=== PATIENT | female | born 1940 | race Caucasian/White ===

== ENCOUNTER → 2018-06-15 | Outpatient (CLI) | payer OTHER ==
[~2018-06-15] MED LIST: ASPI81CH PO; ATOR10 PO; ATOR20 PO; CALCA500CH PO; ENTRESTO 24 MG1 EACH PO; FAMO10 PO; LEVSOD50 PO; METO100ER PO; Micro-K10 MEQ PO; NITR.4SL PO; TICA90TA PO; TRIHYD253B PO; [UNRECOGNIZED DRUG - OTHER] PO
== END | disposition home or self-care (01) ==
LOC: PLD 14:43 → LAB SHORT 14:43
DX: L82.1 Other seborrheic keratosis (principal)
CPT/HCPCS: 88305

== ENCOUNTER → 2020-12-17 | Outpatient (CLI) | payer OTHER | END | disposition home or self-care (01) | LOC: LAB SHORT 10:35 → LAB 10:35 | DX: B35.1 Tinea unguium (principal) | CPT/HCPCS: 88305; 88312 ==

== ENCOUNTER → 2022-05-20 | Outpatient (CLI) | payer OTHER ==
[2022-05-20 17:36] LABS: Magnesium, Blood 2.2 mg/dL (1.6-2.4)
[2022-05-20 17:47] LABS: Albumin, Blood 3.8 g/dL (3.4-5.0); Albumin/Globulin Ratio 1.4 (0.8-1.8); Bilirubin, Total 0.8 mg/dL (0.1-1.0); Bun/Creatinine Ratio 14.3 (12.0-20.0); Calcium, Blood 8.8 mg/dL (8.5-10.1); Creatinine, Blood 1.12 mg/dL (0.40-1.00); Globulin, Blood 2.8 g/dL (2.2-4.0); Potassium, Blood 3.7 mmol/L (3.5-5.5); Thyroid Stimulating Hormone 2.77 uIU/mL (0.360-4.800); Total Protein, Blood 6.6 g/dL (6.4-8.2)
== END | disposition home or self-care (01) ==
LOC: LAB SHORT 13:51 → LAB 13:51
PROVIDERS: Internal Medicine Cardiovascular Disease
DX: I42.0 Dilated cardiomyopathy (principal); I10 Essential (primary) hypertension; R00.2 Palpitations
CPT/HCPCS: 36415; 80053; 83735; 83880; 84443

== ENCOUNTER 2022-07-16 06:45 | Emergency (ER) | payer OTHER ==
[~2022-07-16] VITALS: Ht 170.2 cm; Wt 83.9 kg
[2022-07-16 07:24] LABS: BASOPHILS ABSOLUTE AUTO 0.06 K/mm3 (0.00-0.23); BASOPHILS PERCENT AUTO 1 % (0-2); EOSINOPHILS ABSOLUTE AUTO 0.09 K/mm3 (0.00-0.68); EOSINOPHILS PERCENT AUTO 1 % (0-6); Hematocrit 46.2 % (33.0-51.0); Hemoglobin 15.7 g/dL (11.5-16.0); IMMATURE GRAN ABSOLUTE AUTO 0.01 K/mm3 (0.00-0.10); IMMATURE GRAN PERCENT AUTO 0 % (0-1); LYMPHOCYTES ABSOLUTE AUTO 2.26 K/mm3 (0.84-5.20); LYMPHOCYTES PERCENT AUTO 33 % (21-46); MONOCYTES ABSOLUTE AUTO 0.96 K/mm3 (0.16-1.47); MONOCYTES PERCENT AUTO 14 % (4-13); Mean Corpuscular HGB 29.6 pg (26.0-34.0); Mean Corpuscular Volume 87 fL (80-100); Mean Platelet Volume 11.9 fL (9.1-12.4); NEUTROPHILS ABSOLUTE AUTO 3.38 K/mm3 (1.96-9.15); NEUTROPHILS PERCENT AUTO 50 % (41-73); Platelet Count 179 K/mm3 (150-400); RDW Coefficient Variation 12.8 % (11.7-14.2); RDW Standard Deviation 40.8 fL (35.1-46.3); Red Blood Cell Count 5.31 M/mm3 (3.80-5.20); White Blood Cell Count 6.76 K/mm3 (4.00-11.30)
[2022-07-16 07:44] LABS: Albumin/Globulin Ratio 1.2 (0.8-1.8); Bilirubin, Total 0.9 mg/dL (0.1-1.0); Calcium, Blood 9.3 mg/dL (8.5-10.1); Creatinine, Blood 1.11 mg/dL (0.40-1.00); Globulin, Blood 3.2 g/dL (2.2-4.0); Total Protein, Blood 7.2 g/dL (6.4-8.2)
[2022-07-16] MEDS ORDERED: PRED20 PO (08:08)
[2022-07-16] MEDS ORDERED: ALBU90OI INH (08:08)
== END 2022-07-16 08:30 | disposition home or self-care (01) ==
LOC: ER 06:45
PROVIDERS: Emergency Medicine
DX: J06.9 Acute upper respiratory infection, unspecified (principal); M54.9 Dorsalgia, unspecified; R53.83 Other fatigue; I10 Essential (primary) hypertension; I25.10 Atherosclerotic heart disease of native coronary artery without angina pectoris; E03.9 Hypothyroidism, unspecified; Z88.1 Allergy status to other antibiotic agents; Z88.8 Allergy status to other drugs, medicaments and biological substances; Z88.2 Allergy status to sulfonamides; Z79.899 Other long term (current) drug therapy; Z79.82 Long term (current) use of aspirin
CPT/HCPCS: 71045; 80053; 84484; 85025; 93005; 93010

== ENCOUNTER 2023-01-04 21:43 | Emergency (ER) | payer OTHER ==
[~2023-01-04] VITALS: Ht 170.2 cm; Wt 86.2 kg
[~2023-01-04 21:43] MED LIST changes: +ALBU90OI INH; +PRED20 PO
[2023-01-04 22:26] LABS: BASOPHILS ABSOLUTE AUTO 0.06 K/mm3 (0.00-0.23); BASOPHILS PERCENT AUTO 1 % (0-2); EOSINOPHILS ABSOLUTE AUTO 0.18 K/mm3 (0.00-0.68); EOSINOPHILS PERCENT AUTO 2 % (0-6); Hematocrit 42.1 % (33.0-51.0); Hemoglobin 13.7 g/dL (11.5-16.0); IMMATURE GRAN ABSOLUTE AUTO 0.03 K/mm3 (0.00-0.10); IMMATURE GRAN PERCENT AUTO 0 % (0-1); LYMPHOCYTES PERCENT AUTO 29 % (21-46); MONOCYTES ABSOLUTE AUTO 0.98 K/mm3 (0.16-1.47); MONOCYTES PERCENT AUTO 11 % (4-13); Mean Corpuscular HGB Conc 32.5 g/dL (31.5-36.5); Mean Corpuscular Volume 89 fL (80-100); Mean Platelet Volume 11.6 fL (9.1-12.4); NEUTROPHILS ABSOLUTE AUTO 5.01 K/mm3 (1.96-9.15); NEUTROPHILS PERCENT AUTO 57 % (41-73); Platelet Count 199 K/mm3 (150-400); RDW Coefficient Variation 12.5 % (11.7-14.2); RDW Standard Deviation 41.3 fL (35.1-46.3); Red Blood Cell Count 4.73 M/mm3 (3.80-5.20); White Blood Cell Count 8.86 K/mm3 (4.00-11.30)
[2023-01-04 22:44] LABS: Albumin/Globulin Ratio 1.3 (0.8-1.8); Bilirubin, Total 0.7 mg/dL (0.1-1.0); Bun/Creatinine Ratio 13.3 (12.0-20.0); Creatinine, Blood 1.35 mg/dL (0.40-1.00); Potassium, Blood 3.8 mmol/L (3.5-5.5)
[2023-01-04 23:40] VITALS: BP 161/84
== END 2023-01-05 01:25 | disposition home or self-care (01) ==
LOC: ER 21:43
PROVIDERS: Emergency Medicine
DX: I49.3 Ventricular premature depolarization (principal); Z88.1 Allergy status to other antibiotic agents; Z88.8 Allergy status to other drugs, medicaments and biological substances; Z88.2 Allergy status to sulfonamides; Z79.899 Other long term (current) drug therapy; Z79.82 Long term (current) use of aspirin; Z79.52 Long term (current) use of systemic steroids; I10 Essential (primary) hypertension; I25.10 Atherosclerotic heart disease of native coronary artery without angina pectoris
CPT/HCPCS: 71046; 80053; 85025; 93005; 93010; 99285-25

== ENCOUNTER 2023-01-07 21:55 | Inpatient (IN) | payer OTHER ==
[~2023-01-07] VITALS: Ht 165.1 cm; Wt 97.5 kg
[~2023-01-07 21:55] MED LIST changes: +EUTHYROX50 MCG PO; -LEVSOD50 PO
[2023-01-07 22:27] LABS: Base Excess Venous -3.9 mmol/L; Bicarbonate Venous 21.6 mmol/L (24.0-30.0); PCO2 Venous 36.8 mmHg (38-42); pH Blood Venous 7.37 (7.34-7.37)
[2023-01-07 22:30] LABS: Calcium, Ionized (POC) 1.11 mmol/L (1.10-1.46); Chloride (POC) 106 mmol/L (98-108); Creatinine (POC) 1.3 mg/dL (0.6-1.0); Glucose (ISTAT POC) 234 mg/dL (70-99); Potassium (POC) 4.1 mmol/L (3.5-5.5); Sodium (POC) 138 mmol/L (135-148); Total CO2 (POC) 20 mmol/L (21-32)
[2023-01-07] MEDS ORDERED: FUROSEMIDE20 MG PO (23:10)
[2023-01-07] MEDS ORDERED: METOPROLOL SUCC25 MG PO (23:10)
[2023-01-07] MEDS ORDERED: ATORVASTATIN CA20 MG PO (23:11)
[2023-01-07 23:25] LABS: Albumin, Blood 3.6 g/dL (3.4-5.0); Albumin/Globulin Ratio 1.3 (0.8-1.8); Bilirubin, Total 0.7 mg/dL (0.1-1.0); Bun/Creatinine Ratio 17.8 (12.0-20.0); Calcium, Blood 8.5 mg/dL (8.5-10.1); Creatinine, Blood 1.29 mg/dL (0.40-1.00); Globulin, Blood 2.8 g/dL (2.2-4.0); Magnesium, Blood 2.2 mg/dL (1.6-2.4); Potassium, Blood 3.9 mmol/L (3.5-5.5); Total Protein, Blood 6.4 g/dL (6.4-8.2)
[2023-01-07 23:47] LABS: BASOPHILS ABSOLUTE AUTO 0.07 K/mm3 (0.00-0.23); BASOPHILS PERCENT AUTO 0 % (0-2); EOSINOPHILS ABSOLUTE AUTO 0.21 K/mm3 (0.00-0.68); EOSINOPHILS PERCENT AUTO 1 % (0-6); Hematocrit 41.5 % (33.0-51.0); Hemoglobin 13.5 g/dL (11.5-16.0); IMMATURE GRAN ABSOLUTE AUTO 0.08 K/mm3 (0.00-0.10); IMMATURE GRAN PERCENT AUTO 1 % (0-1); LYMPHOCYTES ABSOLUTE AUTO 0.82 K/mm3 (0.84-5.20); LYMPHOCYTES PERCENT AUTO 5 % (21-46); MONOCYTES ABSOLUTE AUTO 0.75 K/mm3 (0.16-1.47); MONOCYTES PERCENT AUTO 4 % (4-13); Mean Corpuscular HGB 29.3 pg (26.0-34.0); Mean Corpuscular HGB Conc 32.5 g/dL (31.5-36.5); Mean Corpuscular Volume 90 fL (80-100); NEUTROPHILS ABSOLUTE AUTO 15.65 K/mm3 (1.96-9.15); NEUTROPHILS PERCENT AUTO 89 % (41-73); Platelet Count 162 K/mm3 (150-400); RDW Coefficient Variation 12.6 % (11.7-14.2); RDW Standard Deviation 41.4 fL (35.1-46.3); White Blood Cell Count 17.58 K/mm3 (4.00-11.30)
[2023-01-08] VITALS (9 sets, daily range): BP systolic 102–145; BP diastolic 53–84
[2023-01-08 06:22] LABS: BASOPHILS ABSOLUTE AUTO 0.03 K/mm3 (0.00-0.23); BASOPHILS PERCENT AUTO 0 % (0-2); EOSINOPHILS ABSOLUTE AUTO 0.02 K/mm3 (0.00-0.68); EOSINOPHILS PERCENT AUTO 0 % (0-6); Hematocrit 39.7 % (33.0-51.0); Hemoglobin 12.7 g/dL (11.5-16.0); IMMATURE GRAN ABSOLUTE AUTO 0.04 K/mm3 (0.00-0.10); IMMATURE GRAN PERCENT AUTO 0 % (0-1); LYMPHOCYTES ABSOLUTE AUTO 1.91 K/mm3 (0.84-5.20); LYMPHOCYTES PERCENT AUTO 18 % (21-46); MONOCYTES PERCENT AUTO 7 % (4-13); Mean Corpuscular HGB 28.9 pg (26.0-34.0); Mean Corpuscular Volume 90 fL (80-100); Mean Platelet Volume 12.2 fL (9.1-12.4); NEUTROPHILS ABSOLUTE AUTO 7.68 K/mm3 (1.96-9.15); NEUTROPHILS PERCENT AUTO 74 % (41-73); Platelet Count 160 K/mm3 (150-400); RDW Coefficient Variation 12.5 % (11.7-14.2); RDW Standard Deviation 41.6 fL (35.1-46.3); Red Blood Cell Count 4.39 M/mm3 (3.80-5.20); White Blood Cell Count 10.38 K/mm3 (4.00-11.30)
[2023-01-08 10:42] LABS: Albumin, Blood 3.1 g/dL (3.4-5.0); Albumin/Globulin Ratio 1.3 (0.8-1.8); Bun/Creatinine Ratio 14.5 (12.0-20.0); Calcium, Blood 7.9 mg/dL (8.5-10.1); Creatinine, Blood 1.1 mg/dL (0.40-1.00); Globulin, Blood 2.3 g/dL (2.2-4.0); Potassium, Blood 4.4 mmol/L (3.5-5.5); Total Protein, Blood 5.4 g/dL (6.4-8.2)
--- NOTE | 2023-01-08 18:17 | NUR ---
SHIFT SUMMARY PT A&OX4. SP02>90% ON RA. TELEMETRY SHOWED MOSTLY SINUS WILLY HR 50'S. 70'S WITH AMBULATION. 2 RUNS OF VTACH (5 BEATS; 6 BEATS) PER SECURITY ENGINEER. AMIO INFUSING PER EMAR. PO AMIO STARTED THIS SHIFT. AMBULATES TO BATHROOM SBA FOR LINE MANAGEMENT. DAUGHTER, GRANDCHILDREN IN ROOM THIS SHIFT. MD STILES IN ROOM TO ASSESS. MD TYLER IN ROOM TO ASSESS. MD TYLER W/ ORDERS FOR NPO AT MIDNIGHT FOR CATH IN AM. CALL LIGHT IN REACH.
--- NOTE | 2023-01-08 20:00 | NUR ---
ASSUMPTION OF CARE: NO SIGNIFICANT CHANGES FROM EOS. PATIENT TO BE NPO AT 0000, FOR ANGIO, EDUCATION PROVIDED. HISOTRY OF STENT IN 2016. PATIENT A/O PLEASANT COOPERATIVE WITH CARE, VSS, DID HAVE SMALL EPISODES OF VTACH. TROP TRENDING DOWN. RA. SPO2 >94%. PATIENT WOB IMPROVING DURING EXERTION. EDEMA BLE IS SIMILAR. IMAGES SHOWING PULM EDEMA, WILL REQUEST LASIX, AND PATIENT REQUESTING COLACE. WILL CONTINUE TO MONITOR UNTIL SHIFT CHANGE, DENIES CHEST PAIN PRESSURE OR SOB AT REST.
--- NOTE | 2023-01-08 22:04 | NUR ---
INFILTRATION OF AMIODARONE: PATIENT IV WHEN CHANGING TO A NEW BAG OF AMIO, IV INSPECTED, LFA FROM WATCH LINE TO THE ELBOW IS MILDLY REDDENED, NOTICE AT APPORXIMATELY 2049. PULLED MUCH FLUID OUT, AND REMOVED CATHETER, STRIPPED MUCH FLUID OUT OF IV HOLE, GAUZE, COBAN, WITH WARM BLANKETS AND ELEVATION. CALLED PHARMACY FOR RECOMMENDATIONS. PLAN TO HAVE PROVIDER EVALUATE, SKIN HAS BEEN MARKED, PATIENT NOW IS ENDORSING PAIN AT THE IV SITE ONLY. PROVIDER TO INSPECT, CONTINUE TO MONITOR, AND IF PAIN WERE TO BECOME SEVERE CALL TO PROVIDER FOR NEXT STEP OF EXTRAVASATION CARE. PATIENT AWARE. GOLF COURSE MANAGER AWARE, CONTINUE TO MONITOR.
[2023-01-09] VITALS (15 sets, daily range): BP systolic 114–133; BP diastolic 46–88
[2023-01-09 06:05] LABS: BASOPHILS ABSOLUTE AUTO 0.05 K/mm3 (0.00-0.23); BASOPHILS PERCENT AUTO 0 % (0-2); EOSINOPHILS ABSOLUTE AUTO 0.05 K/mm3 (0.00-0.68); EOSINOPHILS PERCENT AUTO 0 % (0-6); Hematocrit 39.2 % (33.0-51.0); IMMATURE GRAN ABSOLUTE AUTO 0.07 K/mm3 (0.00-0.10); IMMATURE GRAN PERCENT AUTO 1 % (0-1); LYMPHOCYTES ABSOLUTE AUTO 1.83 K/mm3 (0.84-5.20); LYMPHOCYTES PERCENT AUTO 14 % (21-46); MONOCYTES ABSOLUTE AUTO 1.02 K/mm3 (0.16-1.47); MONOCYTES PERCENT AUTO 8 % (4-13); Mean Corpuscular HGB 29.6 pg (26.0-34.0); Mean Corpuscular HGB Conc 33.2 g/dL (31.5-36.5); Mean Corpuscular Volume 89 fL (80-100); Mean Platelet Volume 12.3 fL (9.1-12.4); NEUTROPHILS ABSOLUTE AUTO 9.73 K/mm3 (1.96-9.15); NEUTROPHILS PERCENT AUTO 76 % (41-73); Platelet Count 148 K/mm3 (150-400); RDW Coefficient Variation 12.7 % (11.7-14.2); Red Blood Cell Count 4.39 M/mm3 (3.80-5.20); White Blood Cell Count 12.75 K/mm3 (4.00-11.30)
--- NOTE | 2023-01-09 06:14 | NUR ---
EOS: AMIO IN LFA SEEMS TO BE LESS RED, PEN MARKER IN PLACE, DECREASED IV SITE PAIN AT THE LEVEL OF THE INFILTRATION. PATIENT HAS BEEN ABLE TO SLEEP MOST OF THE NIGHT, ROTATING WARM BLANKETS WRAPPED AROUND ARM AND ELEVATED. PATIENT HAS BEEN DENYING CHEST PAIN, QT DID CHANGE MUCH FTHROUGH THE SHIFT .50 @ 1900, .53 @ 0000, THAN .51 THIS AM. HAS HAD A 5-6 BEAT OF VTACH, KNOWN SHE HAD PRIOR SIMILAR DURING THE DAY. PATIENT ON RA SATURATING WELL. NO LARGE CONCERNS FROM THIS WOOD DIE MAKER, AWAITNG ALL OF LABS. WILL CONTINUE TO MONITOR UNTIL SHIFT CHANGE.
[2023-01-09 06:24] LABS: Albumin, Blood 3.5 g/dL (3.4-5.0); Albumin/Globulin Ratio 1.4 (0.8-1.8); Bilirubin, Total 1.3 mg/dL (0.1-1.0); Bun/Creatinine Ratio 13.6 (12.0-20.0); Calcium, Blood 8.5 mg/dL (8.5-10.1); Creatinine, Blood 1.18 mg/dL (0.40-1.00); Globulin, Blood 2.5 g/dL (2.2-4.0); Magnesium, Blood 2.2 mg/dL (1.6-2.4); Phosphorus, Blood 2.2 mg/dL (2.5-4.9); Potassium, Blood 4.1 mmol/L (3.5-5.5)
--- NOTE | 2023-01-09 16:54 | NUR ---
SHIFT SUMMARY: PT A&Ox4, COOPERATIVE W/CARE, ANSWERING QUESTIONS APPROPRIATELY. PT DENIES SOB, O2 SATS >93% ON RA. PT DENIES CP, SR W/PVCs ON MONITOR, RATE 60s-70s. PT TO/FROM WELL SERVICE PUMP EQUIPMENT OPERATOR FOR ANGIOGRAM, TR BAND HAS BEEN RECOVERED W/TRANSPARENT DRESSING TO R RADIAL SITE. SITE HEALING WELL, BRUISING AND MILD SWELLING NOTED AROUND ACCESS SITE, NO PROGRESSION OF BRUISING OR SWELLING. PLAN FOR ICD PLACEMENT TOMORROW, PT TO BE NPO AT MIDNIGHT. PT AND FAMILY UPDATED, V/U. L ARM CONTINUES RED AND SWOLLEN BUT REDNESS DOES NOT APPEAR TO HAVE SPREAD, PT DENIES WORSENING PAIN T/OUT THE DAY. PT AMBULATES TO/FROM RESTROOM W/MINIMAL ASSISTANCE. AT THIS TIME, PT IS RESTING QUIETLY IN BED W/FAMILY AT BEDSIDE AND CALL LIGHT WITHIN REACH. WILL CONTINUE TO MONITOR AND TREAT ACCORDINGLY UNTIL CHANGE OF SHIFT. PT HAS BEEN NEGATIVE FOR IGNITABLE RISK/SOURCES WHEN ASSESSED T/OUT THE DAY.
[2023-01-10] VITALS (15 sets, daily range): BP systolic 121–149; BP diastolic 60–105
--- NOTE | 2023-01-10 02:06 | NUR ---
ASSUMPTION OF CARE: ASSUMED CARE OF PATIENT AT 1900 01/09. NO CONCERNS ONLY CHANGE FROM PREVIOUS SHIFT IS RIGHT RADIAL SITE CLEAR ANGIO. STILL INFUSING AMIO. PATIENT TOLERATING WELL. VSS. WILL CONTINUE TO MONITOR. DENIES CHEST PAIN PRESSURE OR SOB.
[2023-01-10 04:23] LABS: BASOPHILS ABSOLUTE AUTO 0.05 K/mm3 (0.00-0.23); BASOPHILS PERCENT AUTO 1 % (0-2); EOSINOPHILS ABSOLUTE AUTO 0.27 K/mm3 (0.00-0.68); EOSINOPHILS PERCENT AUTO 3 % (0-6); Hematocrit 36.6 % (33.0-51.0); Hemoglobin 11.9 g/dL (11.5-16.0); IMMATURE GRAN ABSOLUTE AUTO 0.04 K/mm3 (0.00-0.10); IMMATURE GRAN PERCENT AUTO 1 % (0-1); LYMPHOCYTES ABSOLUTE AUTO 1.87 K/mm3 (0.84-5.20); LYMPHOCYTES PERCENT AUTO 22 % (21-46); MONOCYTES ABSOLUTE AUTO 1.11 K/mm3 (0.16-1.47); MONOCYTES PERCENT AUTO 13 % (4-13); Mean Corpuscular HGB Conc 32.5 g/dL (31.5-36.5); Mean Corpuscular Volume 89 fL (80-100); NEUTROPHILS ABSOLUTE AUTO 5.17 K/mm3 (1.96-9.15); NEUTROPHILS PERCENT AUTO 61 % (41-73); Platelet Count 133 K/mm3 (150-400); RDW Coefficient Variation 12.8 % (11.7-14.2); RDW Standard Deviation 41.9 fL (35.1-46.3); White Blood Cell Count 8.51 K/mm3 (4.00-11.30)
[2023-01-10 04:28] LABS: Mean Platelet Volume 13.1 fL (9.1-12.4)
[2023-01-10 04:47] LABS: Albumin, Blood 2.9 g/dL (3.4-5.0); Albumin/Globulin Ratio 1.2 (0.8-1.8); Bilirubin, Total 1.4 mg/dL (0.1-1.0); Bun/Creatinine Ratio 10.8 (12.0-20.0); Creatinine, Blood 1.11 mg/dL (0.40-1.00); Globulin, Blood 2.5 g/dL (2.2-4.0); Magnesium, Blood 2.1 mg/dL (1.6-2.4); Phosphorus, Blood 2.1 mg/dL (2.5-4.9); Potassium, Blood 3.8 mmol/L (3.5-5.5); Total Protein, Blood 5.4 g/dL (6.4-8.2)
--- NOTE | 2023-01-10 05:09 | NUR ---
EOS: NO CHANGE FROM ASSUMPTION OF CARE. PATIENT DID HAVE MILD FEVER AT BEGINNING OF SHIFT TREATED WITH TYLENOL 325 AND FEVER BROKE. PAITENT VSS STABLE THE REST OF THE SHIFT.AMIO INFUSING, DENIES CHEST PAIN PRESSURE OR SOB. ANGIO SITE RECOVERED BY PREVIOUS RN NICELY. HAS BEEN AMBULATING TO BATHROOM WELL, SBA. WILL CONTINUE TO MONITOR UNTIL SHIFT CHANGE.
[2023-01-10 09:31] LABS: International Normalized Ratio 1.03; Prothrombin Time Results 10.8 Sec (9.7-11.5)
--- NOTE | 2023-01-10 17:50 | NUR ---
SHIFT SUMMARY: PT TO/FROM SCOOP OPERATOR FOR ICD PLACEMENT TO L CHEST WALL. SUTURES, GLUE, STERI STRIPS AND PRESSURE DRESSING IN PLACE, DRESSING HAS BEEN C/D/I SINCE RETURN TO ROOM. PT DECLINES TYLENOL FOR PAIN BUT AGREES TO ICE PACKS, V/U OF BEDREST AND MINIMAL MOVEMENT TO L ARM. POST ANGIO SITE TO R ARM CONTINUES WNL. L ARM REDNESS/SWELLING APPEARS IMPROVED SINCE YESTERDAY. O2 SATS MAINTAINED >93% ON RA. SR W/PVC AND QTc RANGE 0.51-0.54, RATE 70s. PT DENIES SOB OR CP, USING BEDPAN AND TOLERATING WELL. PT HAS BEEN NEGATIVE FOR IGNITABLE RISK/SOURCES WHEN ASSESSED. AT THIS TIME, PT RESTING QUIETLY IN ROOM W/CALL LIGHT IN REACH. WILL CONTINUE TO MONITOR AND TREAT ACCORDINGLY UNTIL CHANGE OF SHIFT.
--- NOTE | 2023-01-10 23:23 | NUR ---
ASSUMPTION OF CARE: PATIENT WITH NEW ICD, ANGIO SITE FULLY RECOEVED, ALERT ANDREE ORIENTED, MILD PAIN AND MILDLY FEBRILE WHICH IS KNOWN. TREATED WITH TYLENOL WITH RELIEF. INCREASED AMOUNT OF ICE TO AFFECT ICD SITE, IMPROVED PAIN RELEIF. SITE IS WELL NO DRAINING, C/D/I. PATIENT VSS POTENTIAL DISCHARGE TOMORROW, STILL HAVE 5-6 BEATS OF PVC'S INCREASED THIS EVENING THAN DAY SHIFT. ONLY CONCERN IS WOUND CHECK AND FOLLOW UP APPOINTMENT PAPER WORK, NONE NOTED IN THE CHART. WILL PASS ONTO DAYS
[2023-01-11 00:04] VITALS: BP 133/70
[2023-01-11 03:18] VITALS: BP 102/89
[2023-01-11 05:24] LABS: BASOPHILS ABSOLUTE AUTO 0.05 K/mm3 (0.00-0.23); BASOPHILS PERCENT AUTO 1 % (0-2); EOSINOPHILS ABSOLUTE AUTO 0.47 K/mm3 (0.00-0.68); EOSINOPHILS PERCENT AUTO 5 % (0-6); Hematocrit 38.7 % (33.0-51.0); Hemoglobin 12.8 g/dL (11.5-16.0); IMMATURE GRAN ABSOLUTE AUTO 0.04 K/mm3 (0.00-0.10); IMMATURE GRAN PERCENT AUTO 0 % (0-1); LYMPHOCYTES ABSOLUTE AUTO 1.68 K/mm3 (0.84-5.20); LYMPHOCYTES PERCENT AUTO 16 % (21-46); MONOCYTES ABSOLUTE AUTO 1.12 K/mm3 (0.16-1.47); MONOCYTES PERCENT AUTO 11 % (4-13); Mean Corpuscular HGB 29.2 pg (26.0-34.0); Mean Corpuscular HGB Conc 33.1 g/dL (31.5-36.5); Mean Corpuscular Volume 88 fL (80-100); Mean Platelet Volume 12.2 fL (9.1-12.4); NEUTROPHILS ABSOLUTE AUTO 7.03 K/mm3 (1.96-9.15); NEUTROPHILS PERCENT AUTO 68 % (41-73); Platelet Count 140 K/mm3 (150-400); RDW Coefficient Variation 12.8 % (11.7-14.2); RDW Standard Deviation 41.4 fL (35.1-46.3); Red Blood Cell Count 4.38 M/mm3 (3.80-5.20); White Blood Cell Count 10.39 K/mm3 (4.00-11.30)
[2023-01-11 06:00] LABS: Albumin, Blood 2.9 g/dL (3.4-5.0); Bun/Creatinine Ratio 8.2 (12.0-20.0); Calcium, Blood 7.9 mg/dL (8.5-10.1); Creatinine, Blood 1.1 mg/dL (0.40-1.00); Globulin, Blood 2.9 g/dL (2.2-4.0); Phosphorus, Blood 3.2 mg/dL (2.5-4.9); Potassium, Blood 4.1 mmol/L (3.5-5.5); Total Protein, Blood 5.8 g/dL (6.4-8.2)
--- NOTE | 2023-01-11 06:47 | NUR ---
EOS: PATIENT CHANGES FORM ASSUMPTION ARE CONTINUED WAVING AND INCREASED QTC. RESIDENT WAS INFORMED. PATIENT PAIN TREATED WITH TYLENOL FOR ICD SITE PAIN. INTERROGATED ICD. DENIES CHEST PAIN. ELECTROLYTES MUCH IMPROVED. NO CONCERNS FROM THIS RN SITES ARE BOTH C/D/I.
[2023-01-11] MEDS ORDERED: ACET325 PO (07:00)
[2023-01-11] MEDS ORDERED: AMIODARONE HCL400 M2 PO (07:06)
[2023-01-11] MEDS ORDERED: Amiodarone HCl200 MG PO (07:07)
[2023-01-11] MEDS ORDERED: CEPH500 PO (07:08)
[2023-01-11 07:53] VITALS: BP 156/81
--- NOTE | 2023-01-11 08:48 | NUR ---
Bedside report was received from Wayne at around 0715. At time of vital signs, pt was alert, states feeling a little bit feverish and having some pain around the left chest wall surgical site. ANIKA Ruth was also at the bedside. Surgical site is dressed, clean, intact and dry. Dr. Serna saw the patient this morning, and states pt is ready to be discharged when hospitalist decides. States pt does not need another chest x ray this morning, and that interrogation was good. Dr. Almonte also has seen the patient and states that he will check back in after lunch to see if the patient is feeling better. Tylenol was given for temperature 99.1 and soreness at the surgical site. She is sitting up eating breakfast right now.
--- NOTE | 2023-01-11 10:36 | NUR ---
Upon receiving a referral for spiritual care, I visited the patient. Patient's dtr is bedside. Patient is lying in bed and alert. They explain about the events that led to patient's hospitalization and the plan to d/c today. Patient voices that she is both excited to d/c and nervous as she fears another heart event or the shock of the defibulator. Patient shares about their [employer] lis[employer], her spouse being lodged at [facility] and her solid family support. I normalize patient's feeling and fears, and provide therapeutic listening, anxiety containment and prayer. Patient and dtr express their gratitude and show signs of reduced stress.
--- NOTE | 2023-01-11 13:33 | NUR ---
1245 Discharge instructions were reviewed with the patient and with her daughter at the bedside. All instructions reviewed were also included in printed discharge packet. Questions answered and follow up appointment dates and times were reviewed. Pt was taken out in wheelchair by the PCT with pt's daughter accompanying.
== END 2023-01-11 13:06 | disposition home or self-care (01) | DRG 223 ==
LOC: ER 21:55 → ICUE 21:56 → PCU 21:56
PROVIDERS: Family Medicine; Internal Medicine; Internal Medicine Cardiovascular Disease; Student in an Organized Health Care Education/Training Program; ADMIT Internal Medicine
PROC: 5A2204Z Restoration of Cardiac Rhythm, Single (ICD-10-PCS; principal; 2023-01-07)
PROC: 4A023N7 Measurement of Cardiac Sampling and Pressure, Left Heart, Percutaneous Approach (ICD-10-PCS; 2023-01-09)
PROC: B2111ZZ Fluoroscopy of Multiple Coronary Arteries using Low Osmolar Contrast (ICD-10-PCS; 2023-01-09)
PROC: 0JH608Z Insertion of Defibrillator Generator into Chest Subcutaneous Tissue and Fascia, Open Approach (ICD-10-PCS; 2023-01-10)
PROC: 02H63KZ Insertion of Defibrillator Lead into Right Atrium, Percutaneous Approach (ICD-10-PCS; 2023-01-10)
PROC: 02HK3KZ Insertion of Defibrillator Lead into Right Ventricle, Percutaneous Approach (ICD-10-PCS; 2023-01-10)
DX: I47.20 Ventricular tachycardia, unspecified (principal); I21.A1 Myocardial infarction type 2; I13.0 Hypertensive heart and chronic kidney disease with heart failure and stage 1 through stage 4 chronic kidney disease, or unspecified chronic kidney disease; I42.9 Cardiomyopathy, unspecified; I50.22 Chronic systolic (congestive) heart failure; N17.9 Acute kidney failure, unspecified; N18.30 Chronic kidney disease, stage 3 unspecified; E66.9 Obesity, unspecified; I73.9 Peripheral vascular disease, unspecified; K21.9 Gastro-esophageal reflux disease without esophagitis; I45.9 Conduction disorder, unspecified; E03.9 Hypothyroidism, unspecified; I25.10 Atherosclerotic heart disease of native coronary artery without angina pectoris; I87.2 Venous insufficiency (chronic) (peripheral); Z95.5 Presence of coronary angioplasty implant and graft; Z88.8 Allergy status to other drugs, medicaments and biological substances; Z79.890 Hormone replacement therapy; Z79.82 Long term (current) use of aspirin; Z79.899 Other long term (current) drug therapy; Z79.52 Long term (current) use of systemic steroids; Z88.5 Allergy status to narcotic agent; Z68.32 Body mass index [BMI] 32.0-32.9, adult
CPT/HCPCS: 33249; 36415; 71045; 76937; 80047; 80053; 82330; 82803; 83735; 83880; 84100; 84484; 85014; 85025; 85610; 92960; 93005; 93010; 93306; 93458; 94760; 96365-59; 96366; 96366-59; 96368; 96375; 99152; 99153; 99291-25; A9270; C1721; C1769; C1781; C1887; C1894; C1895; C1898; G0378; J0282; J0690; J1644; J1650; J2250; J3010; J3475; J3480; J7030; J7040; J7050; J7060; Q9967

== ENCOUNTER 2024-05-25 08:33 | Emergency (ER) | payer OTHER ==
[~2024-05-25] VITALS: Ht 170.2 cm; Wt 90.7 kg
[~2024-05-25 08:33] MED LIST changes: +ACET325 PO; +AMIODARONE HCL400 M2 PO; +ATORVASTATIN CA20 MG PO; +Amiodarone HCl200 MG PO; +CEPH500 PO; +FUROSEMIDE20 MG PO; +METOPROLOL SUCC25 MG PO
[2024-05-25 08:51] VITALS: BP 149/76
[2024-05-25 09:20] LABS: CORONAVIRUS COVID-19 AG Negative (NEGATIVE); INFLUENZA A AG Negative (NEGATIVE); INFLUENZA B AG Negative (NEGATIVE)
[2024-05-25 11:33] LABS: BASOPHILS ABSOLUTE AUTO 0.08 K/mm3 (0.00-0.23); BASOPHILS PERCENT AUTO 1 % (0-2); EOSINOPHILS ABSOLUTE AUTO 0.02 K/mm3 (0.00-0.68); EOSINOPHILS PERCENT AUTO 0 % (0-6); Hematocrit 43.2 % (33.0-51.0); Hemoglobin 15.2 g/dL (11.5-16.0); IMMATURE GRAN ABSOLUTE AUTO 0.17 K/mm3 (0.00-0.10); IMMATURE GRAN PERCENT AUTO 1 % (0-1); LYMPHOCYTES ABSOLUTE AUTO 0.92 K/mm3 (0.84-5.20); LYMPHOCYTES PERCENT AUTO 5 % (21-46); MONOCYTES ABSOLUTE AUTO 0.79 K/mm3 (0.16-1.47); MONOCYTES PERCENT AUTO 5 % (4-13); Mean Corpuscular HGB 30.3 pg (26.0-34.0); Mean Corpuscular HGB Conc 35.2 g/dL (31.5-36.5); Mean Corpuscular Volume 86 fL (80-100); NEUTROPHILS ABSOLUTE AUTO 15.69 K/mm3 (1.96-9.15); NEUTROPHILS PERCENT AUTO 89 % (41-73); RDW Coefficient Variation 13.6 % (11.7-14.2); RDW Standard Deviation 42.5 fL (35.1-46.3); Red Blood Cell Count 5.01 M/mm3 (3.80-5.20); White Blood Cell Count 17.67 K/mm3 (4.00-11.30)
[2024-05-25 11:52] LABS: Mean Platelet Volume 12.7 fL (9.1-12.4); Platelet Count 111 K/mm3 (150-400)
[2024-05-25 12:28] LABS: Albumin, Blood 3.1 g/dL (3.4-5.0); Albumin/Globulin Ratio 0.8 (0.8-1.8); Bun/Creatinine Ratio 12.6 (12.0-20.0); Calcium, Blood 8.9 mg/dL (8.5-10.1); Creatinine, Blood 1.11 mg/dL (0.40-1.00); Globulin, Blood 3.8 g/dL (2.2-4.0); Potassium, Blood 3.9 mmol/L (3.5-5.5); Total Protein, Blood 6.9 g/dL (6.4-8.2)
[2024-05-25] MEDS ORDERED: Amoxicillin875 MG PO (12:42)
[2024-05-25] MEDS ORDERED: BENZ100A PO (12:42)
== END 2024-05-25 12:54 | disposition home or self-care (01) ==
LOC: ER 08:33
PROVIDERS: Emergency Medicine; Student in an Organized Health Care Education/Training Program
DX: J18.9 Pneumonia, unspecified organism (principal); Z88.1 Allergy status to other antibiotic agents; Z88.8 Allergy status to other drugs, medicaments and biological substances; Z79.82 Long term (current) use of aspirin; Z79.890 Hormone replacement therapy; Z79.899 Other long term (current) drug therapy; I10 Essential (primary) hypertension; Z95.5 Presence of coronary angioplasty implant and graft
CPT/HCPCS: 71046; 80053; 85025; 87428-QW; 93005; 93010; 99284-25

== ENCOUNTER → 2024-06-16 | Outpatient (CLI) | payer OTHER ==
[~2024-06-16] MED LIST changes: +Amoxicillin875 MG PO; +BENZ100A PO
== END | disposition home or self-care (01) ==
LOC: LAB SHORT 08:14 → LAB 08:14
DX: N39.0 Urinary tract infection, site not specified (principal)
CPT/HCPCS: 87077; 87086; 87186

== ENCOUNTER 2025-02-10 06:29 | Inpatient (IN) | payer OTHER ==
[~2025-02-10] VITALS: Ht 170.2 cm; Wt 85.3 kg
[2025-02-10 07:24] LABS: BASOPHILS ABSOLUTE AUTO 0.04 K/mm3 (0.00-0.23); BASOPHILS PERCENT AUTO 1 % (0-2); EOSINOPHILS ABSOLUTE AUTO 0.10 K/mm3 (0.00-0.68); EOSINOPHILS PERCENT AUTO 1 % (0-6); Hematocrit 48.7 % (33.0-51.0); Hemoglobin 15.8 g/dL (11.5-16.0); IMMATURE GRAN ABSOLUTE AUTO 0.02 K/mm3 (0.00-0.10); IMMATURE GRAN PERCENT AUTO 0 % (0-1); LYMPHOCYTES ABSOLUTE AUTO 1.99 K/mm3 (0.84-5.20); LYMPHOCYTES PERCENT AUTO 24 % (21-46); MONOCYTES ABSOLUTE AUTO 0.50 K/mm3 (0.16-1.47); MONOCYTES PERCENT AUTO 6 % (4-13); Mean Corpuscular HGB Conc 32.4 g/dL (31.5-36.5); Mean Corpuscular Volume 90 fL (80-100); NEUTROPHILS ABSOLUTE AUTO 5.64 K/mm3 (1.96-9.15); NEUTROPHILS PERCENT AUTO 68 % (41-73); NRBC ABSOLUTE 0.00 K/mm3 (0.00-0.02); NRBC Auto 0.0 /100 WBC (0.0-0.2); Platelet Count 184 K/mm3 (150-400); RDW Coefficient Variation 13.6 % (11.7-14.2); RDW Standard Deviation 45.3 fL (35.1-46.3)
[2025-02-10 07:39] LABS: Alanine Aminotransfer (ALT/SGP 38.0 U/L (12-78); Albumin, Blood 4.4 g/dL (3.4-5.0); Albumin/Globulin Ratio 1.4 (0.8-1.8); Anion Gap 13.0 mmol/L (3-11); Aspartate Aminotrans (AST/SGOT 44.0 U/L (12-37); Bilirubin, Total 1.4 mg/dL (0.1-1.0); Blood Urea Nitrogen 13.0 mg/dL (8-24); CO2, Blood 22.0 mmol/L (21-32); Calcium, Blood 9.3 mg/dL (8.5-10.1); Chloride, Blood 108.0 mmol/L (98-108); Creatinine, Blood 1.4 mg/dL (0.40-1.00); Globulin, Blood 3.1 g/dL (2.2-4.0); Glucose, Blood 147.0 mg/dL (70-99); Potassium, Blood 3.5 mmol/L (3.5-5.5); Sodium, Blood 139.0 mmol/L (136-145); Total Protein, Blood 7.5 g/dL (6.4-8.2)
[2025-02-10] MEDS ORDERED: FLU VACC TS2025(65UP)/MF59C/PF 45 MCG/0.5 ML SYRINGE IM SCH (09:50)
[2025-02-10 15:15] VITALS: BP 138/77
[2025-02-10] MEDS ORDERED: FARXIGA10 MG PO (15:19)
--- NOTE | 2025-02-10 18:33 | NUR ---
SHIFT SUMMARY PT ADMITTED FROM ER TODAY FOR FOR CHF EXACERBATION/FLUID OVERLOAD AFTER CHEST PRESSURE AND SOB FOR 1 WEEK. PT DENIES C/P AT THIS TIME. IV LASIX GIVEN IN ER WITH GOOD URINE OUTPUT. PT A&OX4, VSS, RA, IND IN ROOM TO BATHROOM, [facility]. DAUGHTER AT BEDSIDE ASSISTING WITH CARE. PT ABLE TO MAKE NEEDS KNOWN, CALL LIGHT IN REACH.
[2025-02-10 19:52] VITALS: BP 130/79
[2025-02-10] MEDS ORDERED: AMIODARONE HCL100 M1 PO (20:36)
[2025-02-10] MEDS ORDERED: FAMO10 PO ×2 (20:45→20:47)
[2025-02-11 00:18] VITALS: BP 124/63
[2025-02-11 04:34] VITALS: BP 138/76
[2025-02-11 04:53] LABS: BASOPHILS ABSOLUTE AUTO 0.05 K/mm3 (0.00-0.23); BASOPHILS PERCENT AUTO 1 % (0-2); EOSINOPHILS ABSOLUTE AUTO 0.18 K/mm3 (0.00-0.68); EOSINOPHILS PERCENT AUTO 2 % (0-6); Hematocrit 44.2 % (33.0-51.0); Hemoglobin 14.5 g/dL (11.5-16.0); IMMATURE GRAN ABSOLUTE AUTO 0.01 K/mm3 (0.00-0.10); IMMATURE GRAN PERCENT AUTO 0 % (0-1); LYMPHOCYTES ABSOLUTE AUTO 1.68 K/mm3 (0.84-5.20); LYMPHOCYTES PERCENT AUTO 21 % (21-46); MONOCYTES ABSOLUTE AUTO 0.79 K/mm3 (0.16-1.47); MONOCYTES PERCENT AUTO 10 % (4-13); Mean Corpuscular HGB Conc 32.8 g/dL (31.5-36.5); Mean Corpuscular Volume 89 fL (80-100); NEUTROPHILS ABSOLUTE AUTO 5.35 K/mm3 (1.96-9.15); NEUTROPHILS PERCENT AUTO 67 % (41-73); NRBC ABSOLUTE 0.00 K/mm3 (0.00-0.02); NRBC Auto 0.0 /100 WBC (0.0-0.2); Platelet Count 164 K/mm3 (150-400); RDW Coefficient Variation 13.7 % (11.7-14.2); RDW Standard Deviation 44.6 fL (35.1-46.3)
[2025-02-11 05:10] LABS: Anion Gap 8.0 mmol/L (3-11); Blood Urea Nitrogen 14.0 mg/dL (8-24); CO2, Blood 27.0 mmol/L (21-32); Calcium, Blood 8.3 mg/dL (8.5-10.1); Chloride, Blood 107.0 mmol/L (98-108); Creatinine, Blood 1.33 mg/dL (0.40-1.00); Glucose, Blood 100.0 mg/dL (70-99); Potassium, Blood 3.4 mmol/L (3.5-5.5); Sodium, Blood 139.0 mmol/L (136-145)
--- NOTE | 2025-02-11 05:35 | NUR ---
SHIFT SUMMARY PT OOB TO BSC INDEPENDENTLY. PT WITH STEADY GAIT, BUT C/O FEELING SOB WITH ACTIVITY. PT REMAINS ON ROOM AIR WITH SATS WNL. PT SLEPT LONG INTERVALS DURING THE NIGHT.
[2025-02-11 07:24] VITALS: BP 129/74
[2025-02-11] MEDS ORDERED: Enoxaparin 40 MG/0.4 ML SYR SC SCH (09:00)
[2025-02-11] MEDS ORDERED: Potassium Chloride 10 Meq Tablet SA PO ONE ×3 (10:00→18:40)
[2025-02-11] MEDS ORDERED: EUTHYROX100 MC1 PO (12:53)
[2025-02-11 12:56] LABS: Anion Gap 9.0 mmol/L (3-11); Blood Urea Nitrogen 14.0 mg/dL (8-24); CO2, Blood 27.0 mmol/L (21-32); Calcium, Blood 8.8 mg/dL (8.5-10.1); Chloride, Blood 106.0 mmol/L (98-108); Creatinine, Blood 1.33 mg/dL (0.40-1.00); Glucose, Blood 154.0 mg/dL (70-99); Magnesium, Blood 2.2 mg/dL (1.6-2.4); Phosphorus, Blood 3.1 mg/dL (2.5-4.9); Potassium, Blood 3.6 mmol/L (3.5-5.5); Sodium, Blood 138.0 mmol/L (136-145)
--- NOTE | 2025-02-11 15:18 | NUR ---
2103 Deliv NOTIFIED THIS SECTION 8 PROPERTY MANAGER OF QTC LENGTHENING OF 0.69. GREATER THAN PRIOR QTC REPORTED EALIER IN SHIFT. DR SARA CALVINIFIED AND ORDERED SECOND EKG AND TO CALL DR KHAN HE HAD ALREADY CONSULTED HIM TO CASE. EKG WAS COMPLETED AND COPIES PROVIED TO DR KHAN PER REQUEST. MEDICATION ADDED TO EMAR AND FOLLOW UP EKG TOMORROW IN THE MORNING. TELE CONTINUING TO MONITOR.
--- NOTE | 2025-02-11 15:49 | NUR ---
SHIFT SUMMARY PATIENT HAS HAD A QT ELONGATION EVENT OVER NIGHT, AND PROVIDER MADE AWARE, 2X EKG, CARDIOLOGY CONSULTED, LABS DRAWN, MEDICATED PER EMAR. AMIODARONE WAS GIVEN TODAY UNDER DOCTOR ORDERS, AMIODARONE TO BE HELD TOMORROW, FLUID RESTRICTION OF 1500 ML INTIATED TODAY. PATIENT HAS DENIED CHEST PAIN/PRESSURE PATIENT IS A&OX4, ABLE TO MAKE NEEDS KNOWN, AND CALL LIGHT WITHIN REACH.
--- NOTE | 2025-02-11 16:32 | NUR ---
THIS COLLECTOR OF AQUARIUM SPECIMENS HAS REVIEWED AND AGREES WITH ALL NOTES AND ASSESSMENTS BY GREGG HUTCHINS.
[2025-02-11 19:33] VITALS: BP 125/76
--- NOTE | 2025-02-11 21:52 | NUR ---
PATIENT INFORMED THIS RN THAT SHE DID NOT UNDERSTAND THE CONVERSATION WITH DR BIGGS IN THE ED THERE WAS A LOT GOING ON. IF SHE SHOULD CODE, SHE WANTS FULL LIFE-SAVING MEASURES TAKEN, INCLUDING CHEST COMPRESSIONS AND INTUBATION. PROVIDER TO BE NOTIFIED.
[2025-02-11 23:59] VITALS: BP 120/68
[2025-02-12 05:11] VITALS: BP 137/74
[2025-02-12 05:11] LABS: BASOPHILS ABSOLUTE AUTO 0.08 K/mm3 (0.00-0.23); BASOPHILS PERCENT AUTO 1 % (0-2); EOSINOPHILS ABSOLUTE AUTO 0.28 K/mm3 (0.00-0.68); EOSINOPHILS PERCENT AUTO 4 % (0-6); Hematocrit 47.9 % (33.0-51.0); Hemoglobin 15.9 g/dL (11.5-16.0); IMMATURE GRAN ABSOLUTE AUTO 0.00 K/mm3 (0.00-0.10); IMMATURE GRAN PERCENT AUTO 0 % (0-1); LYMPHOCYTES ABSOLUTE AUTO 2.05 K/mm3 (0.84-5.20); LYMPHOCYTES PERCENT AUTO 32 % (21-46); MONOCYTES ABSOLUTE AUTO 0.74 K/mm3 (0.16-1.47); MONOCYTES PERCENT AUTO 12 % (4-13); Mean Corpuscular HGB Conc 33.2 g/dL (31.5-36.5); Mean Corpuscular Volume 89 fL (80-100); NEUTROPHILS ABSOLUTE AUTO 3.22 K/mm3 (1.96-9.15); NEUTROPHILS PERCENT AUTO 51 % (41-73); NRBC ABSOLUTE 0.00 K/mm3 (0.00-0.02); NRBC Auto 0.0 /100 WBC (0.0-0.2); Platelet Count 168 K/mm3 (150-400); RDW Coefficient Variation 13.6 % (11.7-14.2); RDW Standard Deviation 44.0 fL (35.1-46.3)
[2025-02-12 05:41] LABS: Alanine Aminotransfer (ALT/SGP 28.0 U/L (12-78); Albumin, Blood 3.4 g/dL (3.4-5.0); Albumin/Globulin Ratio 1.1 (0.8-1.8); Anion Gap 8.0 mmol/L (3-11); Aspartate Aminotrans (AST/SGOT 30.0 U/L (12-37); Bilirubin, Total 1.2 mg/dL (0.1-1.0); Blood Urea Nitrogen 16.0 mg/dL (8-24); CO2, Blood 29.0 mmol/L (21-32); Calcium, Blood 8.6 mg/dL (8.5-10.1); Chloride, Blood 107.0 mmol/L (98-108); Creatinine, Blood 1.48 mg/dL (0.40-1.00); Globulin, Blood 3.0 g/dL (2.2-4.0); Glucose, Blood 94.0 mg/dL (70-99); Magnesium, Blood 2.3 mg/dL (1.6-2.4); Phosphorus, Blood 2.8 mg/dL (2.5-4.9); Potassium, Blood 3.7 mmol/L (3.5-5.5); Sodium, Blood 140.0 mmol/L (136-145); Total Protein, Blood 6.4 g/dL (6.4-8.2)
--- NOTE | 2025-02-12 06:09 | NUR ---
END OF SHIFT SUMMARY: A&Ox4. PLEASANT AND COOPERATIVE WITH CARE. CALLS APPROPRIATELY AND IS ABLE TO ADVOCATE NEEDS EFFECTIVELY. VSS. TELE STRIP IN CHART REVIEWED AND INTERPRETED SINUS c BBB AND PROLONGED QT. V-PACED. BREATHING EVEN AND UNLABORED c RA. CONTINENT OF BOWEL AND BLADDER; LBM 02/11/25. TOLERATING DIET. SBA c FWW. MEDS WHOLE c FLUIDS x POTASSIUM WHICH SHE IS UNABLE TO SWALLOW AND PREFERS TO DISSOLVE IN APPLESAUCE. REQUESTED TO HAVE CODE STATUS CHANGED TO FULL SHE STATES SHE DID NOT UNDERSTAND WHAT DNR MEANT WHEN IN ED AND DISCUSSED c PROVIDER. VERBAL FROM ON-CALL PROVIDER AND ORDER PLACED. EKG OBTAINED THIS MORNING AND PLACED ON HARD CHART IN CUPBOARD AND TRANSMITTED FOR PROVIDER REVIEW. BED IN LOWEST POSITION, CALL LIGHT WITHIN REACH, ALL NEEDS MET. REPORT TO ONCOMING NURSE.
[2025-02-12 08:02] VITALS: BP 131/73
--- NOTE | 2025-02-12 18:09 | NUR ---
PT HAS BEEN AOX4 AND COOPERATIVE OF CARE. PT INDEPENDENT IN ROOM. PT HAD IMPROVED QTs TODAY PLEASE REFER TO TELE STRIPS. NO DISTRESS NOTED CALL LIGHT WITHIN REACH WILL CONTINUE TO MONITOR.
[2025-02-12 19:12] VITALS: BP 120/65
[2025-02-13 00:21] VITALS: BP 129/76
[2025-02-13 04:58] VITALS: BP 120/64
--- NOTE | 2025-02-13 05:03 | NUR ---
SHIFT SUMMARY; PATIENT ABLE TO SLEEP IN LONG INTERVALS. NO PRN MEDS REQUIRED. TELE SR @ 70 WITH OCC. PVC'S.
[2025-02-13 05:51] LABS: Anion Gap 9.0 mmol/L (3-11); Blood Urea Nitrogen 16.0 mg/dL (8-24); CO2, Blood 27.0 mmol/L (21-32); Calcium, Blood 8.7 mg/dL (8.5-10.1); Chloride, Blood 105.0 mmol/L (98-108); Creatinine, Blood 1.57 mg/dL (0.40-1.00); Glucose, Blood 102.0 mg/dL (70-99); Potassium, Blood 4.0 mmol/L (3.5-5.5); Sodium, Blood 137.0 mmol/L (136-145); Thyroid Stimulating Hormone 4.25 uIU/mL (0.360-4.800)
[2025-02-13 08:47] VITALS: BP 116/64
[2025-02-13] MEDS ORDERED: Torsemide 20 MG TAB PO SCH (09:00)
[2025-02-13] MEDS ORDERED: FURO20 PO (14:08)
[2025-02-13] MEDS ORDERED: SPIR25 PO (14:08)
--- NOTE | 2025-02-13 14:45 | NUR ---
SHIFT SUMMARY AND DISCHARGE PATIENT ALERT AND INTERACTIVE BUT HARD OF HEARING. PATIENT EDUCATED ON CHF, DIET, AND FLUID INTAKE. DAUGHTER PRESENT FOR EDUCATION AND DISCHARGE INSTRUCTIONS. IV DC'D. BELONGINGS SENT HOME WITH PATIENT. ROOM CHECK DONE BEFORE DEPARTURE. PATIENT TAKEN OUT BY PATTERN MAKER PROGRAMER IN WHEELCHAIR.
== END 2025-02-13 14:26 | disposition home or self-care (01) | DRG 291 ==
LOC: ER 06:29 → ERHOLD 09:46 → MEDS 09:46
PROVIDERS: Emergency Medicine; Hospitalist; Student in an Organized Health Care Education/Training Program; ADMIT Family Medicine
DX: I13.0 Hypertensive heart and chronic kidney disease with heart failure and stage 1 through stage 4 chronic kidney disease, or unspecified chronic kidney disease (principal); I50.23 Acute on chronic systolic (congestive) heart failure; I45.2 Bifascicular block; I27.20 Pulmonary hypertension, unspecified; I25.10 Atherosclerotic heart disease of native coronary artery without angina pectoris; I25.5 Ischemic cardiomyopathy; I65.29 Occlusion and stenosis of unspecified carotid artery; E78.5 Hyperlipidemia, unspecified; I49.3 Ventricular premature depolarization; N18.30 Chronic kidney disease, stage 3 unspecified; E03.2 Hypothyroidism due to medicaments and other exogenous substances; T46.2X5A Adverse effect of other antidysrhythmic drugs, initial encounter; Z88.1 Allergy status to other antibiotic agents; Z88.8 Allergy status to other drugs, medicaments and biological substances; Z95.5 Presence of coronary angioplasty implant and graft; Z95.810 Presence of automatic (implantable) cardiac defibrillator; Z86.73 Personal history of transient ischemic attack (TIA), and cerebral infarction without residual deficits; Z88.2 Allergy status to sulfonamides; Z79.890 Hormone replacement therapy; Z79.82 Long term (current) use of aspirin
CPT/HCPCS: 36415; 71046; 80048; 80053; 82330; 82947; 83690; 83735; 83880; 84100; 84443; 84484; 85025; 93005; 93010; 96372-59; 96374; 99285-25; A9270; J1650; J1938

== ENCOUNTER → 2025-02-19 | Outpatient (CLI) | payer OTHER ==
[~2025-02-19] MED LIST changes: +AMIODARONE HCL100 M1 PO; +EUTHYROX100 MC1 PO; +FARXIGA10 MG PO; +FURO20 PO; +SPIR25 PO
[2025-02-20 11:19] LABS: Bacterial Vaginosis PCR Negative (NEGATIVE); Candida glabrata-krusei, PCR NOT DETECTED (NOT DETECT)
[2025-02-20 11:27] LABS: Candida Group, PCR DETECTED (NOT DETECT)
== END ==
LOC: LAB SHORT 15:04 → LAB 15:04
PROVIDERS: Family Medicine
DX: B37.31 Acute candidiasis of vulva and vagina (principal)
CPT/HCPCS: 81515